=== PATIENT | male | born 1950 | race Caucasian/White ===

== ENCOUNTER 2022-09-14 07:30 | Day surgery (SDC) | payer OTHER ==
[2022-09-13 09:58] VITALS: BMI 22.2
[2022-09-14] MEDS ORDERED: PROPOFOL 20 ML ONE (07:53)
[2022-09-14] MEDS ORDERED: PROPOFOL 0 ML ONE (07:53)
[2022-09-14] MEDS ORDERED: Fentanyl 100 MCG/2 ML VIAL ONE (07:53)
[2022-09-14] MEDS ORDERED: Lidocaine 1% PF 5 ML VIAL ONE (07:54)
[2022-09-14] MEDS ORDERED: Benzocaine 20% Spray 60 ML CAN FS PRN (09:22)
== END 2022-09-14 11:15 | disposition home or self-care (01) ==
LOC: CSHSDC 07:30
PROVIDERS: ATTEND Internal Medicine Gastroenterology
PROC: 0DB98ZZ Excision of Duodenum, Via Natural or Artificial Opening Endoscopic (ICD-10-PCS; principal; 2022-09-14)
DX: D13.2 Benign neoplasm of duodenum (principal); B37.81 Candidal esophagitis; K44.9 Diaphragmatic hernia without obstruction or gangrene; J44.9 Chronic obstructive pulmonary disease, unspecified; I10 Essential (primary) hypertension; E78.5 Hyperlipidemia, unspecified; E11.9 Type 2 diabetes mellitus without complications; Z86.010 Personal history of colon polyps; Z86.73 Personal history of transient ischemic attack (TIA), and cerebral infarction without residual deficits; Z87.891 Personal history of nicotine dependence; Z79.899 Other long term (current) drug therapy; Z88.5 Allergy status to narcotic agent
CPT/HCPCS: 88305; J2704; J3010